=== PATIENT | male | born 1955 | race Caucasian/White ===

== ENCOUNTER 2024-07-27 10:24 | Inpatient (IN) | payer MEDICARE, MEDICAID ==
[~2024-07-27] VITALS: Ht 167.6 cm; Wt 61.7 kg
[2024-07-27 11:23] LABS: CHLORIDE 104 mEq/L (98-107); POTASSIUM 3.8 mEq/L (3.5-5.1); SODIUM 136 mEq/L (136-145)
[2024-07-27 11:24] LABS: CALCIUM 9.2 mg/dL (8.7-10.4); CARBON DIOXIDE 23 mEq/L (21-32)
[2024-07-27 11:29] LABS: CREATININE 1.2 mg/dL (0.6-1.3); GLUCOSE 151 mg/dL (70-105); UREA NITROGEN BLOOD 14 mg/dL (9-23)
[2024-07-27 11:30] LABS: TROPONIN I HIGH SENSITIVITY 17 ng/L (3.0-53)
[2024-07-27 11:32] LABS: BASOPHILS % 0.7 % (0.0-2.0); EOSINOPHILS % 0.2 % (0.0-5.0); HEMATOCRIT. 37.9 % (42.0-52.0); HEMOGLOBIN. 13.2 g/dL (14.0-18.0); LYMPHOCYTES % 8.9 % (20.0-50.0); MEAN CORPUSCULAR HEMOGLOBIN 32.1 pg (28.0-32.0); MEAN CORPUSCULAR HGB CONC 34.8 g/dL (31.0-37.0); MEAN CORPUSCULAR VOLUME 92.4 fL (80.0-94.0); MEAN PLATELET VOLUME 8.7 fl (7.4-10.4); MONOCYTES % 6.2 % (2.0-8.0); PLATELET 220 x1000/uL (130-400); RED CELL DISTRIBUTION WIDTH 17.5 % (11.6-14.6); WHITE BLOOD COUNT 8.9 x1000/uL (4.5-11.0)
[2024-07-27] MEDS ORDERED: ONDANSETRON HCL 4MG/2ML INJ IV PRN (13:15)
[2024-07-27] MEDS ORDERED: GUAIFENESIN 200MG/10ML SUGAR FREE UDC PO PRN (13:15)
[2024-07-27] MEDS ORDERED: MAGNESIUM/ALUMINUM HYDROXIDE/SIMETHICONE 30ML UDC PO PRN (13:15)
[2024-07-27] MEDS ORDERED: CLONIDINE 0.1MG TABLET PO PRN (13:15)
[2024-07-27] MEDS ORDERED: IPRATROPIUM/ALBUTEROL 0.5-3(2.5)MG/3ML NEB HHN PRN (13:15)
[2024-07-27] MEDS ORDERED: DOCUSATE SODIUM 100MG CAPSULE PO PRN (13:15)
[2024-07-27] MEDS: SODIUM CHLORIDE 0.9% 1,000 ML IV SCH (13:15)
[2024-07-27 14:38] LABS: CREATINE KINASE 95 IU/L (46-171)
[2024-07-27] MEDS: AZITHROMYCIN 500 MG in DEXT 5% WATER 250 ML IV SCH (14:54)
[2024-07-27 15:00] LABS: PROTHROMBIN TIME 10.9 sec (9.6-11.0)
[2024-07-27 15:35] LABS: CLARITY URINE CLEAR (CLEAR); COLOR URINE YELLOW (YELLOW); GLUCOSE URINE NEGATIVE (NEGATIVE); KETONES URINE 1+ (NEGATIVE); LEUKOCYTE ESTERASE URINE NEGATIVE (NEGATIVE); NITRITE URINE NEGATIVE (NEGATIVE); OCCULT BLOOD URINE NEGATIVE (NEGATIVE); PROTEIN URINE 1+ (NEGATIVE); SPECIFIC GRAVITY URINE 1.033 (1.005-1.030)
[2024-07-27 15:54] LABS: *AMPHETAMINES SCREEN URINE NEGATIVE (NEGATIVE); *BARBITURATES SCREEN URINE NEGATIVE (NEGATIVE); *BENZODIAZEPINES SCREEN URINE NEGATIVE (NEGATIVE); *COCAINE SCREEN URINE NEGATIVE (NEGATIVE); METHADONE URINE SCREEN NEGATIVE (NEGATIVE)
[2024-07-27 15:55] LABS: CANNABINOID URINE SCREEN NEGATIVE (NEGATIVE); ECSTASY MDMA SCREEN URINE NEGATIVE (NEGATIVE); OPIATES URINE SCREEN NEGATIVE (NEGATIVE); PHENCYCLIDINE URINE SCREEN NEGATIVE (NEGATIVE)
[2024-07-27 16:51] LABS: BACTERIA URINE 1+; RBC URINE NONE SEEN /hpf (0-2); SQUAMOUS EPITHELIAL CELL URINE RARE /lpf (RARE/1+); WBC URINE 0-2 /hpf (0-2)
[2024-07-27 22:30] VITALS: BP 124/62; PULSE 77; RESP 18; TEMP 36.61404; TEMP 36.6404; O2SAT 99
[2024-07-28] VITALS (8 sets, daily range): BP systolic 106–130; BP diastolic 55–65; PULSE 69–89; RESP 18–20; TEMP 36.6696–38.11416; O2SAT 98–100
[2024-07-28] MEDS: IPRATROPIUM/ALBUTEROL 0.5-3(2.5)MG/3ML NEB HHN SCH (01:44)
[2024-07-28 08:20] LABS: CHLORIDE 106 mEq/L (98-107); POTASSIUM 3.4 mEq/L (3.5-5.1); SODIUM 138 mEq/L (136-145)
[2024-07-28 08:21] LABS: CARBON DIOXIDE 21 mEq/L (21-32)
[2024-07-28 08:26] LABS: GLUCOSE 102 mg/dL (70-105); TRIGLYCERIDE 146 mg/dL (0-150); UREA NITROGEN BLOOD 13 mg/dL (9-23)
[2024-07-28 08:27] LABS: LDL CHOLESTEROL 88 mg/dL (5-100)
[2024-07-28 08:28] LABS: ALBUMIN 3.8 g/dL (3.2-4.8); CHOLESTEROL 149 mg/dL (<200); CREATINE KINASE 74 IU/L (46-171); HDL CHOLESTEROL 34 mg/dL (>55)
[2024-07-28 08:30] LABS: THYROID STIMULATING HORMONE 6.97 uIU/mL (0.55-4.78)
[2024-07-28 08:37] LABS: BASOPHILS % 0.6 % (0.0-2.0); EOSINOPHILS % 0.1 % (0.0-5.0); HEMATOCRIT. 37.2 % (42.0-52.0); HEMOGLOBIN. 12.8 g/dL (14.0-18.0); LYMPHOCYTES % 14.3 % (20.0-50.0); MEAN CORPUSCULAR HEMOGLOBIN 31.8 pg (28.0-32.0); MEAN CORPUSCULAR HGB CONC 34.4 g/dL (31.0-37.0); MEAN CORPUSCULAR VOLUME 92.2 fL (80.0-94.0); MEAN PLATELET VOLUME 8.9 fl (7.4-10.4); MONOCYTES % 9.6 % (2.0-8.0); NEUTROPHILS % 75.4 % (40.0-76.0); PLATELET 211 x1000/uL (130-400); RED BLOOD CELL COUNT 4.04 mill/uL (4.7-6.1); RED CELL DISTRIBUTION WIDTH 17.1 % (11.6-14.6); WHITE BLOOD COUNT 7.3 x1000/uL (4.5-11.0)
[2024-07-28] MEDS: POTASSIUM CHLORIDE 20MEQ/PACKET PO SCH (09:56)
[2024-07-28] MEDS: ENOXAPARIN 40MG/0.4ML SYR SUBCUT SCH (10:49)
[2024-07-28] MEDS: GUAIFENESIN 600MG ER TABLET PO SCH (10:49)
[2024-07-28] MEDS: AZITHROMYCIN 500 MG in DEXT 5% WATER 250 ML IV SCH (13:51)
[2024-07-28] MEDS: ASPIRIN 81MG TABLET PO NR (13:54)
[2024-07-28] MEDS: ACETAMINOPHEN 325MG TABLET PO PRN (16:33)
[2024-07-29] VITALS (10 sets, daily range): BP systolic 104–127; BP diastolic 63–75; PULSE 63–89; RESP 13–20; TEMP 37.00296–38.22528; O2SAT 96–100
[2024-07-29 08:32] LABS: BASOPHILS % 0.6 % (0.0-2.0); EOSINOPHILS % 0.2 % (0.0-5.0); HEMATOCRIT. 36.2 % (42.0-52.0); HEMOGLOBIN. 11.9 g/dL (14.0-18.0); LYMPHOCYTES % 14.5 % (20.0-50.0); MEAN CORPUSCULAR HEMOGLOBIN 31.8 pg (28.0-32.0); MEAN CORPUSCULAR HGB CONC 32.9 g/dL (31.0-37.0); MEAN CORPUSCULAR VOLUME 96.6 fL (80.0-94.0); MEAN PLATELET VOLUME 8.5 fl (7.4-10.4); MONOCYTES % 10.6 % (2.0-8.0); NEUTROPHILS % 74.1 % (40.0-76.0); PLATELET 188 x1000/uL (130-400); RED BLOOD CELL COUNT 3.75 mill/uL (4.7-6.1); RED CELL DISTRIBUTION WIDTH 17.8 % (11.6-14.6); WHITE BLOOD COUNT 4.2 x1000/uL (4.5-11.0)
[2024-07-29 08:36] LABS: CHLORIDE 111 mEq/L (98-107); POTASSIUM 3.6 mEq/L (3.5-5.1); SODIUM 141 mEq/L (136-145)
[2024-07-29 08:37] LABS: CARBON DIOXIDE 20 mEq/L (21-32)
[2024-07-29 08:38] LABS: CALCIUM 8.9 mg/dL (8.7-10.4)
[2024-07-29 08:42] LABS: CREATININE 0.9 mg/dL (0.6-1.3); GLUCOSE 97 mg/dL (70-105)
[2024-07-29 08:43] LABS: UREA NITROGEN BLOOD 11 mg/dL (9-23)
[2024-07-29] MEDS: CEFTRIAXONE 2GM/50ML 50 ML IV SCH (10:44)
[2024-07-29] MEDS ORDERED: IOHEXOL-300 100 ML BOTTLE ONE (10:50)
[2024-07-29] MEDS ORDERED: IPRATROPIUM/ALBUTEROL 0.5-3(2.5)MG/3ML NEB HHN PRN (14:30)
[2024-07-29] MEDS: ACETAMINOPHEN 325MG TABLET PO PRN (14:50)
[2024-07-30] VITALS (11 sets, daily range): BP systolic 100–136; BP diastolic 60–119; PULSE 71–104; RESP 12–19; TEMP 36.50292–37.33632; O2SAT 97–99
[2024-07-30 08:06] LABS: CARBON DIOXIDE 24 mEq/L (21-32); CHLORIDE 110 mEq/L (98-107); POTASSIUM 3.5 mEq/L (3.5-5.1); SODIUM 142 mEq/L (136-145)
[2024-07-30 08:07] LABS: CALCIUM 8.6 mg/dL (8.7-10.4)
[2024-07-30 08:11] LABS: URIC ACID 3.3 mg/dL (3.7-9.2)
[2024-07-30 08:12] LABS: GLUCOSE 100 mg/dL (70-105); UREA NITROGEN BLOOD 9 mg/dL (9-23)
[2024-07-30 08:13] LABS: LACTATE DEHYDROGENASE 284 IU/L (120-246)
[2024-07-30 08:32] LABS: HEMATOCRIT 30.1 % (42.0-52.0); HEMOGLOBIN 10.5 g/dL (14.0-18.0); MEAN CORPUSCULAR HEMOGLOBIN 31.8 pg (28.0-32.0); MEAN CORPUSCULAR HGB CONC 34.9 g/dL (31.0-37.0); MEAN CORPUSCULAR VOLUME 91.2 fL (80.0-94.0); PLATELET 200 x1000/uL (130-400); RED CELL DISTRIBUTION WIDTH 17.2 % (11.6-14.6); WHITE BLOOD COUNT 4.9 x1000/uL (4.5-11.0)
[2024-07-30] MEDS: ALLOPURINOL 300 MG TABLET PO SCH (09:24)
[2024-07-30] MEDS: AZITHROMYCIN 500 MG TABLET PO SCH (09:24)
[2024-07-30] MEDS: ASPIRIN 81MG TABLET PO SCH (09:24)
[2024-07-30 09:37] LABS: PHOSPHORUS 2.9 mg/dL (2.5-4.9)
[2024-07-30] MEDS: MAGNESIUM 2 G PREMIX 50 ML IV NR (11:14)
[2024-07-30] MEDS ORDERED: ALLO300T2 PO (11:33)
[2024-07-30] MEDS ORDERED: ASPI-1406 PO (11:33)
[2024-07-30] MEDS ORDERED: ASPI-1497 MT (11:34)
[2024-07-30] MEDS ORDERED: ALLO300T2 MT (11:34)
[2024-07-30] MEDS ORDERED: [UNRECOGNIZED DRUG - CODE] IV (11:36)
[2024-07-30] MEDS ORDERED: [UNRECOGNIZED DRUG - CODE] IV (11:36)
[2024-07-30] MEDS ORDERED: [UNRECOGNIZED DRUG - CODE] (11:36)
[2024-07-30] MEDS ORDERED: P20 PO (11:37)
[2024-07-30] MEDS ORDERED: [UNRECOGNIZED DRUG - CODE] IV (11:37)
[2024-07-30] MEDS ORDERED: ONDA4VIA22 (11:37)
[2024-07-30] MEDS ORDERED: [UNRECOGNIZED DRUG - CODE] IV (11:37)
[2024-07-30] MEDS ORDERED: GUAI-741 MT (11:53)
== END 2024-07-30 15:15 | disposition home or self-care (01) | DRG 153 ==
LOC: ER 10:24 → 8WST 12:37 → EDBEDREQ 12:40 → EDBEDREQTM 12:40 → 5EST 07-29 15:47
PROVIDERS: ADMIT Internal Medicine; ATTEND Internal Medicine
DX: J06.9 Acute upper respiratory infection, unspecified (principal); I87.1 Compression of vein; I50.22 Chronic systolic (congestive) heart failure; C85.9A Non-Hodgkin lymphoma, unspecified, in remission; D64.9 Anemia, unspecified; E87.6 Hypokalemia; R13.10 Dysphagia, unspecified; E03.8 Other specified hypothyroidism; Z20.822 Contact with and (suspected) exposure to COVID-19; R06.03 Acute respiratory distress; I25.10 Atherosclerotic heart disease of native coronary artery without angina pectoris; Z85.819 Personal history of malignant neoplasm of unspecified site of lip, oral cavity, and pharynx; Z92.21 Personal history of antineoplastic chemotherapy; Z95.2 Presence of prosthetic heart valve; Z79.82 Long term (current) use of aspirin; Z85.21 Personal history of malignant neoplasm of larynx
CPT/HCPCS: 36415; 70491; 71045; 71275; 80048; 80061; 80305; 81003; 82040; 82533; 82550; 82962; 83036; 83615; 83735; 83880; 84100; 84145; 84439; 84443; 84484; 84550; 85025; 85027; 85379; 87420; 87426; 87804; 93005; 93306; 93880; 93970; 94640; 94664; 99285; J0456; J0696; J1650; J3475; J7060; Q9967

== ENCOUNTER 2025-04-15 16:52 | Emergency (ER) | payer MEDICARE, MEDICAID ==
[~2025-04-15] VITALS: Ht 175.3 cm; Wt 72.0 kg
[~2025-04-15 16:52] MED LIST: ALLO300T2 MT; ASPI-1406 PO; DOXY150T9 MT; GUAI-741 MT; LEVO-65 MT; ONDA4VIA22; P20 PO; [UNRECOGNIZED DRUG - CODE]; [UNRECOGNIZED DRUG - CODE] IV; [UNRECOGNIZED DRUG - CODE] IV; [UNRECOGNIZED DRUG - CODE] IV; [UNRECOGNIZED DRUG - CODE] IV
[2025-04-15 16:55] VITALS: O2SAT 99
[2025-04-15] MEDS: MECLIZINE 25MG TABLET PO ONE (19:06)
[2025-04-15 19:18] LABS: BASOPHILS % 1.5 % (0.0-2.0); EOSINOPHILS % 6.7 % (0.0-5.0); HEMATOCRIT. 40.4 % (42.0-52.0); HEMOGLOBIN. 13.6 g/dL (14.0-18.0); LYMPHOCYTES % 41.8 % (20.0-50.0); MEAN PLATELET VOLUME 8.1 fl (7.4-10.4); MONOCYTES % 10.7 % (2.0-8.0); NEUTROPHILS % 39.3 % (40.0-76.0); PLATELET 169 x1000/uL (130-400); RED BLOOD CELL COUNT 4.44 mill/uL (4.7-6.1); RED CELL DISTRIBUTION WIDTH 14.7 % (11.6-14.6)
[2025-04-15 19:29] LABS: TROPONIN I HIGH SENSITIVITY 16 ng/L (3.0-53); UREA NITROGEN BLOOD 12 mg/dL (9-23)
[2025-04-15 19:30] LABS: CREATININE 1.4 mg/dL (0.6-1.3)
[2025-04-15 19:31] LABS: ASPARTATE AMINOTRANSFERASE 23 IU/L (<34); BILIRUBIN DIRECT 0.2 mg/dL (<=3.0); BILIRUBIN TOTAL 0.7 mg/dL (0.1-1.0); PROTEIN TOTAL 6.7 g/dL (6.0-8.3)
[2025-04-15 22:03] VITALS: BP 137/75; PULSE 55; RESP 16; TEMP 36.5; O2SAT 98
== END 2025-04-15 22:21 | disposition home or self-care (01) ==
LOC: ER 16:52
DX: N17.9 Acute kidney failure, unspecified (principal); R53.1 Weakness; Z79.899 Other long term (current) drug therapy; Z79.52 Long term (current) use of systemic steroids; Z79.82 Long term (current) use of aspirin; Z20.822 Contact with and (suspected) exposure to COVID-19; Z98.890 Other specified postprocedural states
CPT/HCPCS: 99285; 70450; 71045; 87426; 80076; 80048; 83880; 83735; 85025; 84484; 36415; 93005; J8597